=== PATIENT | male | born 1985 | race Caucasian/White ===

== ENCOUNTER 2016-08-08 12:57 | Emergency (ER) | payer BC, OTHER ==
[~2016-08-08] VITALS: Ht 185.4 cm; Wt 103.3 kg
[2016-08-08 13:07] VITALS: TEMP 37; Ht 185.4 cm; Wt 103.3 kg
[2016-08-08] MEDS ORDERED: FERR1TAB23 PO (13:57)
[2016-08-08] MEDS ORDERED: PRT/20 PO (13:57)
[2016-08-08] MEDS ORDERED: BUPR-83 PO (13:57)
[2016-08-08] MEDS ORDERED: PROP1TAB PO (13:57)
[2016-08-08] MEDS ORDERED: BSP/10 PO (13:57)
[2016-08-08 14:02] LABS: HEMATOCRIT 40.9 % (42-52); MEAN CORPUSCULAR HEMOGLOBIN 23.5 pg (25-34); MEAN CORPUSCULAR HGB CONC 30.6 g/dl (32-36); MEAN PLATELET VOLUME 9.6 fL (7.4-10.4); PLATELET COUNT 276 K/uL (130-400); RED BLOOD COUNT 5.31 M/uL (4.7-6.1); WHITE BLOOD COUNT 5.27 K/uL (4.8-10.8)
--- NOTE | 2016-08-08 14:05 | DIAGNOSTIC IMAGING REPORT ---
SINGLE VIEW CHEST CLINICAL HISTORY: Atypical chest pain. FINDINGS: An AP, portable, upright chest radiograph is obtained No prior studies are available for comparison at the time of dictation. The examination is degraded by portable technique and patient rotation. The cardiomediastinal silhouette is unremarkable. The lungs and pleural spaces are clear. No pneumothorax is seen. The bony thorax is grossly intact. IMPRESSION: No active disease in the chest. Electronically signed by: Paul Jimenez M.D. 08/08/2016 2:03 PM Dictated Date/Time: 08/08/2016 2:03 PM
[2016-08-08 14:08] LABS: ALT/SGPT 100 U/L (12-78); AST/SGOT 62 U/L (15-37); BLOOD UREA NITROGEN 10 mg/dl (7-18); BUN/CREATININE RATIO 9.1 (10-20); CALCIUM 8.5 mg/dl (8.5-10.1); CARBON DIOXIDE 27 mmol/L (21-32); CHLORIDE 107 mmol/L (98-107); GLUCOSE 89 mg/dl (70-99); POTASSIUM 3.8 mmol/L (3.5-5.1); SODIUM 141 mmol/L (136-145)
[2016-08-08 14:09] LABS: PARTIAL THROMBOPLASTIN RATIO 1.1; PROTHROMBIN TIME (PATIENT) 10.2 SECONDS (9.0-12.0)
[2016-08-08 14:15] LABS: ALB/GLOB RATIO 1.2 (0.9-2); ALKALINE PHOSPHATASE 88 U/L (45-117)
[2016-08-08 15:09] LABS: URINE APPEARANCE CLEAR (CLEAR); URINE BILIRUBIN NEG (NEG); URINE COLOR YELLOW; URINE NITRITE NEG (NEG); URINE SPECIFIC GRAVITY 1.013 (1.000-1.030); UROBILINOGEN NEG (NEG)
[2016-08-08 15:13] LABS: MANUAL MICROSCOPIC REQUIRED? NO; REVIEW REQ? NO
[2016-08-08] MEDS ORDERED: OPTIRAY 320 IV PRN (15:15)
[2016-08-08 16:13] VITALS: BP 132/74; PULSE 70; O2SAT 99
--- NOTE | 2016-08-09 15:50 | EMERGENCY ROOM VISIT NOTE ---
ED Visit Note First contact with patient: 13:52 Chief Complaint: Chest pain. History of Present Illness: Mr. Long is a 30 year-old white male who is brought into the ED via ambulance c left-sided omplaining of chest pain. Historically patient reports no significant history of coronary artery disease and no family history of coronary artery disease. He currently has no significant risk factors for coronary artery disease. Patient does report that he has been having severe anemia of unknown causes. Approximately 2 weeks ago he needed 2 units of blood and is currently receiving IV iron. He is scheduled to see a specialist and have capsule imaging done of his small bowel. He has had 2 colonoscopies and on EGD that were reported as normal. Patient reports a acute onset of left-sided chest pain that started approximately 6 hours ago while he was at work. He reports he was not doing any strenuous activity at work. Since that time the pain has been constant but has decreased in intensity. He describes his initial onset of discomfort as a sharp sensation located over the lateral aspect of the left chest. He reports at its onset it was 7/10. The pain was radiating into the back, jaw and left shoulder. This lasted approximately 30 minutes and resolved. Currently he is having an dull achy pain over the left lateral chest without radiation. He denies any aggravating or alleviating factors related to the pain. He did not take any medications for his discomfort prior to arrival at the hospital. He reports he has continual shortness of breath and fatigue from his anemia but reports it is no worse today. He denies fevers, chills, sweats, skin eruptions, skin color changes, upper respiratory tract symptoms, wheezing, cough shortness of breath, orthopnea, dependent edema, previous clots, claudication, cramping, recent surgery/ inactivity/extended travel, abdominal pain, nausea, vomiting, diarrhea, constipation, rectal bleeding, black/tarry stools, urinary symptoms, back/flank pain. Review of Systems: As noted above in history of present illness. All body systems were reviewed and found to be negative as noted above. Past Medical History: As previously noted. Current Medications: Buspirone, Wellbutrin, Inderal, Protonix and iron. Allergies to Medications: Patient denies. Social History: Patient is currently employed; he feels safe in his home environment; he admits to tobacco use. Physical Examination: Vital Signs: Date Time Temp Pulse Resp B/P (MAP) Pulse Ox O2 Delivery O2 Flow Rate FiO2 08/08/16 16:13 70 18 132/74 99 08/08/16 14:39 72 18 129/75 99 Room Air 08/08/16 13:10 83 08/08/16 13:07 37.0 73 18 126/73 99 Room Air GENERAL: 30-year-old male in mild distress due to pain, nontoxic-appearing, afebrile and hemodynamically stable. NEUROLOGICAL: Awake, alert and oriented to person, place and time. Answering questions appropriately and following commands. Normal gait. Good hand eye coordination. SKIN: Warm, dry and pink. No soft tissue eruptions or trauma noted. HEENT: Atraumatic and normocephalic. PERRLA. Sclera white and conjunctiva pink. Oral cavity moist and pink. Pharynx is nonerythematous or edematous. Speech normal. No lymphadenopathy. Trachea midline. No jugular venous distention. No carotid bruits. BACK: No tenderness over the bony spine. No CVA tenderness. THORAX: Lungs sounds are clear to auscultation and equal bilaterally with symmetrical chest wall. No wheezing, rales or rhonchi. No crepitus, tenderness , subcutaneous air or deformities noted. HEART: Regular rate and rhythm. No gallops, rubs or murmurs are appreciated. No lifts, heaves or thrills. PMI is not displaced. ABDOMEN: Flat, soft and nontender. Positive bowel sounds in all quadrants. No guarding, rigidity or organomegaly. EXTREMITIES: Moves all extremities well on command and with purpose. All distal neurovascular statuses are intact and equal bilaterally. No dependent edema or calf tenderness/cords. ED Course: Patient is assessed as noted above. Patient's medication list was reviewed. Laboratory Testing: Test 08/08/16 12:50 08/08/16 13:08 08/08/16 14:50 08/08/16 15:28 Range/Units White Blood Count 5.27 4.8-10.8 K/uL Red Blood Count 5.31 4.7-6.1 M/uL Hemoglobin 12.5 14.0-18.0 g/dL Hematocrit 40.9 42-52 % Mean Corpuscular Volume 77.0 80-100 fL Mean Corpuscular Hemoglobin 23.5 25-34 pg Mean Corpuscular Hemoglobin Concent 30.6 32-36 g/dl RDW Standard Deviation 64.9 36.4-46.3 fL RDW Coefficient of Variation 23.0 11.5-14.5 % Platelet Count 276 130-400 K/uL Mean Platelet Volume 9.6 7.4-10.4 fL Prothrombin Time 10.2 9.0-12.0 SECONDS Prothromb Time International Ratio 1.0 0.9-1.1 Activated Partial Thromboplast Time 28.9 21.0-31.0 SECONDS Partial Thromboplastin Ratio 1.1 Sodium Level 141 136-145 mmol/L Potassium Level 3.8 3.5-5.1 mmol/L Chloride Level 107 98-107 mmol/L Carbon Dioxide Level 27 21-32 mmol/L Anion Gap 7.0 3-11 mmol/L Blood Urea Nitrogen 10 7-18 mg/dl Creatinine 1.10 0.60-1.40 mg/dl Est Creatinine Clear Calc Drug Dose 125.1 ml/min Estimated GFR () 104.6 Estimated GFR (Non- 90.2 BUN/Creatinine Ratio 9.1 10-20 Random Glucose 89 70-99 mg/dl Calcium Level 8.5 8.5-10.1 mg/dl Total Bilirubin 0.3 0.2-1 mg/dl Aspartate Amino Transf (AST/SGOT) 62 15-37 U/L Alanine Aminotransferase (ALT/SGPT) 100 12-78 U/L Alkaline Phosphatase 88 45-117 U/L Total Creatine Kinase 148 39-308 U/L Creatine Kinase MB < 0.5 0.5-3.6 ng/ml Creatine Kinase MB Ratio 0-3.0 Total Protein 7.4 6.4-8.2 gm/dl Albumin 4.0 3.4-5.0 gm/dl Globulin 3.4 2.5-4.0 gm/dl Albumin/Globulin Ratio 1.2 0.9-2 Bedside Troponin I < 0.030 < 0.030 0-0.045 ng/ml Urine Color YELLOW Urine Appearance CLEAR CLEAR Urine pH 8.0 4.5-7.5 Urine Specific [place]mer 1.013 1.000-1.030 Urine Protein NEG NEG Urine Glucose (UA) NEG NEG Urine Ketones NEG NEG Urine Occult Blood NEG NEG Urine Nitrite NEG NEG Urine Bilirubin NEG NEG Urine Urobilinogen NEG NEG Urine Leukocyte Esterase NEG NEG EKG #1:1301. Was read by myself and reviewed with Dr. Root shows normal sinus rhythm with a ventricular rate of 73 bpm. Normal axis, intervals and complexes. No acute ST changes indicating ischemia, injury or infarction. Medical records reviewed and no additional EKGs were found. EKG #2:1519. Was read by myself and reviewed with Dr. Root shows normal sinus rhythm with a ventricular rate of 68 bpm. Normal axis, intervals and complexes. No acute ST changes indicating ischemia, injury or infarction. This was compared to previous and no acute changes were noted. Chest X-Rays: Was read by myself and the radiologist showing no acute infiltrates, effusions or pneumothorax. Normal heart silhouette and bony anatomy. No previous to compare. The film was degraded with poor technique. Patient was was offered pain medication and refused. Patient was reassessed multiple times during his stay in the emergency department. Patient's case was reviewed with Dr. Root; we agreed on diagnostic approach , treatment, disposition and plan. Patient was offered a CTA of the chest to evaluate for pulmonary emboli and refused. Patient were educated about today's findings and instructed on his treatment plan; he verbalizes understanding and agreement with this plan. Clinical Impression: Acute left-sided chest pain. Decision-Making: My differential diagnosis I considered acute coronary syndrome , thoracic aneurysm, pneumothorax, pulmonary embolism, musculoskeletal disorder and other causes. Disposition: Patient discharged home in stable condition accompanied by his ; prior to departure he was reassessed and subjectively reported that he was pain and symptom-free. Plan: Patient was encouraged to use 650 mg of acetaminophen every 6 hours as needed for pain. Patient was encouraged to follow-up with his oncologist or primary care provider for worsening/uncontrolled pain, worsening shortness of breath, sensations of heart racing, fevers or any new/concerning symptoms.
== END 2016-08-08 16:14 | disposition home or self-care (01) ==
LOC: C.EDA 13:01
DX: R07.9 Chest pain, unspecified (principal); D64.9 Anemia, unspecified; Z79.899 Other long term (current) drug therapy; Z72.0 Tobacco use